=== PATIENT | male | born 1940 | race Caucasian/White ===

== ENCOUNTER 2017-11-13 15:10 | Inpatient (IN) | payer MEDICARE, BC ==
[~2017-11-13] VITALS: Ht 172.7 cm; Wt 86.6 kg
[~2017-11-13 15:10] MED LIST: CARVEDILOL25 MG PO; CEPHALEXIN 500500 M3 PO; COUMADIN 5 MG TA5 M1; FINASTERIDE5 MG PO; FLOMAX0.4 MG PO; FUROSEMIDE 20 M20 MG; FUROSEMIDE 40 M40 M1; GLUCOTROL5 MG; GLYBURIDE 5 MG T5 M1; HYTRIN 5 M5 MG/1 CAP; LANOXIN 0.120.125 M2; LORATADINE; LOVENOX; NORCO 5-325 TA1 EACH PO; NOVOPEN 31 EACH; PLAVIX 75 MG TA75 M1; PRILOSEC 20 MG20 MG; PRINIVIL10 MG PO; PROSCAR 5MG TABL5 MG; PROZAC 20 MG20 MG PO; WELLBUTRIN XL300 M1; ZOCOR40 MG
[2017-11-13 15:12] VITALS: BP 137/56
[2017-11-13] MEDS ORDERED: ELIQUIS5 MG PO (15:34)
[2017-11-13] MEDS ORDERED: GABAPENTIN 100100 MG PO (15:35)
[2017-11-13] MEDS ORDERED: [UNRECOGNIZED DRUG - REMARK] (15:37)
[2017-11-13 16:11] LABS: HEMATOCRIT 32.6 % (42.0-52.0); HEMOGLOBIN 11.3 gm/dL (14.0-18.0); MCH 32.7 pg (26.0-34.0); MCHC 34.6 g/dL (28.0-37.0); MCV 94.4 fL (80.0-100.0); MPV 10.2 fl. (7.2-11.1); NUCLEATED RBCS 0 /100WBC; PLATELET COUNT* 141 thou/uL (150-400); RBC 3.46 mil/uL (4.50-6.00); RDW-CV 14.9 % (10.5-14.5); WBC 9.3 thou/uL (4.0-11.0)
[2017-11-13 16:16] LABS: ANION GAP 9 mmol/L (7-16); BUN 27 mg/dL (7-18); CALCIUM 8.6 mg/dL (8.5-10.1); CHLORIDE 103 mmol/L (98-107); CO2 23 mmol/L (21-32); CREATININE 1.4 mg/dL (0.6-1.3); GLUCOSE 238 mg/dL (70-99); POTASSIUM 4.1 mmol/L (3.5-5.1); SODIUM 135 mmol/L (136-145)
[2017-11-13 16:23] LABS: APTT 28.8 Seconds (25.0-31.3); INR 1.2; PROTIME 11.2 Seconds (9.20-11.50)
[2017-11-13 16:27] LABS: ALBUMIN 2.9 g/dL (3.4-5.0); ALKALINE PHOSPHATASE 107 U/L (46-116); LIPASE 115 U/L (73-393); NT-PRO BRAIN NAT PEPTIDE 579 pg/mL (<300); SGOT 17 U/L (15-37); SGPT 16 U/L (30-65); TOTAL BILIRUBIN 0.8 mg/dL (<0.1-1.0); TOTAL PROTEIN 7.6 g/dL (6.4-8.2); TROPONIN-I LEVEL <0.06 ng/mL (<0.06)
[2017-11-13 16:40] LABS: ABSOLUTE LYMPHOCYTES 1.4 thou/uL (0.8-5.3); ABSOLUTE MONOCYTES 0.6 thou/uL (0.0-1.2); ABSOLUTE NEUTROPHILS 7.3 thou/uL (1.6-8.1); CLUMPED PLTS OCCASIONAL; PLATELET ESTIMATE DECREASED
[2017-11-13 16:41] LABS: ANISOCYTOSIS Occasional
[2017-11-13 17:15] LABS: BE -1.3 mmol/L (-2 to +3); HCO3 21.8 mmol/L (22.0-26.0); PCO2 31.2 mmHg (35.0-45.0); PO2 65.7 mmHg (75.0-100.0); pH 7.462 (7.340-7.450)
[2017-11-13 19:59] VITALS: BP 134/57
[2017-11-13 20:30] VITALS: BP 150/65
[2017-11-13 23:53] VITALS: BP 157/60
[2017-11-14 04:18] VITALS: BP 172/74
--- NOTE | 2017-11-14 05:20 | NUR ---
END SHIFT: PT RESTED WELL. NO PAIN OR COMPLAINTS REPORTED. ASSESSMENT UNCHANGED. VSS. PT STATES SHE "FEELS BETTER THAN SHE HAS IN DAYS." SAFETY PRECAUTIONS IN PLACE, CALL LIGHT IN REACH. PERFORMED HOURLY ROUNDING. WILL CONT TO MONITOR.
--- NOTE | 2017-11-14 05:33 | NUR ---
END SHIFT: PT RESTED WELL. ASSESSMENT UNCHANGED. REMAINS ON 2L NC- TOLERATING WELL. SR 1ST DEG WITH PVCS NOTED ON MONITOR. PT STATES HE HAS BEEN COUGHING UP BLOOD TINGED SPUTUM AT HOME. NONE SEEN HERE. IVF INFUSING WITHOUT DIFFICUTLY. SAFETY PRECAUTIONS IN PLACE. CALL LIGHT IN REACH. WILL CONT TO MONITOR.
[2017-11-14 05:53] LABS: HEMATOCRIT 29.8 % (42.0-52.0); HEMOGLOBIN 10.3 gm/dL (14.0-18.0); MCH 32.7 pg (26.0-34.0); MCHC 34.6 g/dL (28.0-37.0); MCV 94.6 fL (80.0-100.0); MPV 8.8 fl. (7.2-11.1); RBC 3.16 mil/uL (4.50-6.00); RDW-CV 15.3 % (10.5-14.5); WBC 4.4 thou/uL (4.0-11.0)
[2017-11-14 06:31] LABS: CALCIUM 8.1 mg/dL (8.5-10.1); CREATININE 1.1 mg/dL (0.6-1.3); MAGNESIUM 1.6 mg/dL (1.8-2.4); POTASSIUM 4.7 mmol/L (3.5-5.1)
[2017-11-14 11:00] VITALS: BP 161/65
--- NOTE | 2017-11-14 13:41 | EKG ---
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 : 1940 Requested By: Bianca Matute Order Number: [id number] MD: Rob Joseph Measurements Intervals [place] Rate: 79 P: -14 WY: 248 QRS: 29 QRSD: 104 T: -42 QT: 373 QTc: 428 Interpretive Statements Sinus arrhythmia Prolonged WY interval Probable LVH with secondary repol abnrm Inferior infarct, age indeterminate Baseline wander in lead(s) I Compared to ECG 08/10/2015 20:00:11 Myocardial infarct finding now present Sinus rhythm no longer present Electronically Signed On 11-14-2017 13:41:30 CHIEF MEDICAL PHYSICIST by Rob Joseph [email or web address] <ELECTRONICALLY SIGNED> By: Rob Joseph MD, FACC 11/14/17 1341 1515 1515 Rob Joseph MD, FAC /EPI
--- NOTE | 2017-11-14 15:36 | NUR ---
ASSUMED PT CARE AT 0700 PT IS ALERT AND ORIENTED X 4 PT DENIES PAIN OR SOA PT HAS NEUROPATHY WHICH IS TREATED, PT DENIES PAIN OR SOA ON 2L/NC, PT IS UP WITH ASSIST X 1 PT IS A FALL RISK BED ALARM IS ON, TALKED WITH DR STRAUSS AND OBTAINED ORDER FOR CARB CONTROL DIET THIS NURSE PT IN PT BLOOD SUGAR WAS [address] OF [address] PT APPLE JUICE AND RECHECKED PT BLOOD SUGAR WHICH WAS 134 PT STATES HE FEELS BETTER, PT WENT FOR CT, WILL CONTINUE TO MONITOR
[2017-11-14 16:12] LABS: CALCIUM 8.6 mg/dL (8.5-10.1); CREATININE 1.3 mg/dL (0.6-1.3); MAGNESIUM 1.6 mg/dL (1.8-2.4); POTASSIUM 4.2 mmol/L (3.5-5.1)
[2017-11-14 19:45] VITALS: BP 165/68
[2017-11-15] VITALS: BP 139/55
[2017-11-15 04:00] VITALS: BP 165/55
--- NOTE | 2017-11-15 04:23 | NUR ---
END SHIFT: PT RESTED WELL WITH NO COMPLAINTS AND NO PAIN. REPORTED 1 LARGE WATERY STOOL. PT HAS BEEN COUGHING UP COPIOUS AMOUNTS OF BLOODY SPUTUM. SENT DOWN TO LAB FOR CULTURE. TOLERATING IVF. REMAINS ON 2L NC. VSS. 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 SAFETY PRECAUTIONS IN PLACE. CALL LIGHT IN REACH. PERFORMED HOURLY ROUNDING. WILL CONT TO MONITOR.
[2017-11-15 05:21] LABS: HEMATOCRIT 29.9 % (42.0-52.0); HEMOGLOBIN 10.4 gm/dL (14.0-18.0); MCH 32.9 pg (26.0-34.0); MCHC 34.6 g/dL (28.0-37.0); MCV 94.9 fL (80.0-100.0); MPV 8.4 fl. (7.2-11.1); RBC 3.15 mil/uL (4.50-6.00); WBC 5.4 thou/uL (4.0-11.0)
[2017-11-15 06:00] LABS: ALBUMIN 2.6 g/dL (3.4-5.0); CALCIUM 8.2 mg/dL (8.5-10.1); CREATININE 1.3 mg/dL (0.6-1.3); MAGNESIUM 1.6 mg/dL (1.8-2.4); POTASSIUM 4.4 mmol/L (3.5-5.1); TOTAL BILIRUBIN 1.1 mg/dL (<0.1-1.0); TOTAL PROTEIN 6.5 g/dL (6.4-8.2)
[2017-11-15 08:00] VITALS: BP 172/70
[2017-11-15 11:15] VITALS: BP 124/61
--- NOTE | 2017-11-15 14:23 | NUR ---
CM ASSESSMENT: Pt is A&O. Resides at home with his . Independent with ADLs. does the driving. They have a pd lady that comes in to cook and clean twice/week. [facility] No h[facility] of SNF. Pt has a walker, cane and ramp at home, mostly uses the walker. Supportive family that is invovled in POC. Goal is to return home. Per Pt, anticipate dc to home tomorrow. Following for dc needs.
[2017-11-15 15:30] VITALS: BP 143/51
--- NOTE | 2017-11-15 18:19 | NUR ---
ASSUMED RESPONSIBILITY OF PT THIS AM PT IS ALERT AND ORIENTED X2-3 VERY FORGETFUL CAME TO VISIT AND HELPED ANSWER SOME QUESTIONS PT IS AN ACCUCHECK BUT NO INSULIN OR MEDS ORDERED FOR IT PT WITH SOME PAIN TO CHEST WITH COUGHING PT WITH BLOOD IN SPUTUM BUT THIS NURSE DID NOT VISUALIZE PT STATED HE KEPT FORGETTING TO CALL IN THERE BUT NIGHT NURSE SAW IV FLUIDS CONT AT 150/H IV ANTIBIOTICS AND ON 2L NC NO WATERY STOOLS TODAY BUT PT INCONTINENT T/O DAY MG REPLACED AND REDRAW AT 1999 PT IS 1D AV BLOCK WITH PVCS ON THE MONITOR AND B/P ELEVATED THIS AM CALL LIGHT IN REACH
[2017-11-15 20:45] VITALS: BP 179/72
[2017-11-16] VITALS: BP 153/47
[2017-11-16 04:00] VITALS: BP 174/60
--- NOTE | 2017-11-16 07:01 | NUR ---
Pt with cough productive of moderate amount blood-tinged to bloody sputum. Also had brief bout with nausea, no emesis. Magnesium replaced per protocol, and level now normal. Pt reports nausea resolved. VSS. Will continue to monitor.
[2017-11-16 08:00] VITALS: BP 143/48
--- NOTE | 2017-11-16 11:50 | NUR ---
ASSUMED PT CARE AT 0700 PT IS ALERT AND ORIENTED X 3-4 WITH PERIODS OF FORGETFULNESS, PT DENIES PAIN OR SOA ON 2L/NC, PT IS UP WITH ASSIST X 1 WITH WALKER PT IS MEDICAL SURGICAL STATUS, PT VSS, PT BLOOD SUGAR IS ELEVATED NOTIFIED PHYSICIAN OBTAINED ORDER FOR INSULIN SLIDING SCALE, PT IS ON ANTIBIOTICS, WILL CONTINUE TO MONITOR
--- NOTE | 2017-11-16 16:30 | NUR ---
PATIENT TRANSFERRED FROM [facility] THIS EVENING. REPORT RECEIVED FROM MARI JANE. AGREE WITH AM ASSESSMENT. 02 SAT 93% ON 2L NC. DR. BROWN NOTIFIED FOR BREATHING TREATMENTS FOR PATIENT, ORDERS PLACED IN COMPUTER. IV SL. BED ALARM ON FOR PATIENT SAFETY. CALL LIGHT WITHIN REACH, WILL CONTINUE TO MONITOR.
[2017-11-17 00:14] VITALS: BP 137/91
[2017-11-17 00:21] VITALS: BP 144/53
[2017-11-17 03:53] LABS: HEMATOCRIT 29.7 % (42.0-52.0); HEMOGLOBIN 10.2 gm/dL (14.0-18.0); MCH 32.5 pg (26.0-34.0); MCHC 34.3 g/dL (28.0-37.0); MPV 8.4 fl. (7.2-11.1); RBC 3.12 mil/uL (4.50-6.00); RDW-CV 15.2 % (10.5-14.5); WBC 4.9 thou/uL (4.0-11.0)
[2017-11-17 06:09] LABS: ALBUMIN 2.6 g/dL (3.4-5.0); CALCIUM 8.5 mg/dL (8.5-10.1); CREATININE 1.3 mg/dL (0.6-1.3); POTASSIUM 3.9 mmol/L (3.5-5.1); TOTAL BILIRUBIN 1.2 mg/dL (<0.1-1.0); TOTAL PROTEIN 6.8 g/dL (6.4-8.2)
--- NOTE | 2017-11-17 10:45 | CON ---
[address] [address] CONSULTATION Name: BRIE MCKEON Room: [address] IN M.R.#: [id number] Admission: 11/13/17 Attend Phys: Yassine Mclain, Discharge: Date of : 42 Report #: [id number] THIS REPORT FOR: //name// CC: Lubna Mclain DATE OF SERVICE: 11/16/2017 ATTENDING PHYSICIAN: Lubna Jose MD INDICATION FOR CONSULTATION: Non-massive hemoptysis, left lower lobe pneumonia. HISTORY OF PRESENT ILLNESS: The patient is a 77-year-old male who came to the hospital a couple days ago. He has been on Eliquis. He coughed up a couple of large clots. First, they were bright red and then they switched to dark clots and they have basically resolved since he has been in here for the last couple of days. He has had cough with wheezing. He is on Zosyn, has not been ordered any breathing treatments order him some breathing treatments and some bronchodilators. Also, we will give him some Tessalon Perles to suppress his cough. Denies any fever, chills or sweats. Denies any chest pain. He has been on chronic anticoagulation for brainstem stroke several years ago. 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 He is a remote smoker, quit 25 years ago. Denies any alcohol or illicit drug use. OUTPATIENT MEDICATIONS: Included carvedilol 25 mg daily, finasteride 5 mg daily, lisinopril or Prinivil 5 mg daily, tamsulosin 0.4 mg at bedtime, apixaban 5 mg b.i.d. for his stroke, gabapentin 100 mg b.i.d., bupropion 300 mg daily, digoxin 0.125 mg daily, fluoxetine or Prozac 20 mg daily. ALLERGIES: HE HAS ALLERGIES OR INTOLERANCE FROM PROPOXYPHENE FROM DARVON AND ASPIRIN GIVES HIM NAUSEA. FAMILY HISTORY: Negative for premature cardiopulmonary diseases. REVIEW OF SYSTEMS: A 14-point review of systems reviewed, otherwise are negative. PHYSICAL EXAMINATION: GENERAL: This is a somewhat anxious 77-year-old male. VITAL SIGNS: Blood pressure is 143/48, heart rate 72, respirations 16 and temperature is 36. He is on oxygen at 2 liters, he pulls it off continually. He is 5 feet 10 inches tall, weight is 86 kg, BMI [place] 29[place] [phone] CONSULTATION Name: BRIE MCKEON Room: [address] IN M.R.#: [id number] Admission: 11/13/17 Attend Phys: Yassine Mclain, Discharge: Date of : 42 Report #: [id number] HEENT: Pupils are midpoint and reactive. Nares and pharynx are clear. NECK: Supple without nodes. CHEST: Shows a few rhonchi in the left lung base. Right chest is clear. CARDIOVASCULAR: Regular rate and rhythm without murmur, gallop or rub. Heart rate is in the 70s. ABDOMEN: Soft, mildly obese without masses or megaly. EXTREMITIES: Without calf tenderness. No cyanosis, clubbing or edema. NEUROLOGIC: He has some deficits in his legs. LABORATORY DATA: From yesterday, 11/15/2017, hemoglobin is 10, white count 5400. Sodium is 143, potassium is 4.4, carbon dioxide is 24, BUN 17, creatinine 1.3, glucose is 168, calcium is 8.2, magnesium is 1.6. Total bilirubin is 1.1. Albumin is 2.6. Apixaban is still being given and imaging from CT chest and chest x-ray just shows patchy left lower lobe infiltrate. V/Q scan is low probability. No evidence of malignancy. There is a dense pneumonia in both lower lobes, mostly smaller left lower lobe infiltrate and minimal on the right. Cultures so far negative. . We will add some oral bronchodilators and quick burst of steroids. He was not on breathing treatments. I will add some breathing treatments to see if that does not help with his cough and nonmassive hemoptysis. I do not think we need to do bronchoscopy at least at this time. We have to take him off his Eliquis to do that. IMPRESSION: Nonmassive hemoptysis related to left lower lobe pneumonia. PLAN: We will give him some Tessalon Perles, steroids and nebulizer treatments to see if we can improve his situation. If he would get worse, leave him off his apixaban for a day or 2 and until the hemoptysis resolves. Again, I do not think he needs bronchoscopy. Thanks again for allowing us to participate in this man's care. <ELECTRONICALLY SIGNED> By: Robert Rajput MD 11/17/17 1045 1633 [id number] Wright MD /nt
--- NOTE | 2017-11-17 15:05 | NUR ---
I have reviewed the documentation by SAMIR CHAMBERS from 11/17/17 to 11/17/17 and I concur with it. AMY GAITAN
[2017-11-17 16:53] VITALS: BP 142/71
--- NOTE | 2017-11-17 18:15 | NUR ---
ASSUMED CARE THIS AM. A/O X 4, SLEPT MUCH OF THIS SHIFT, UP TO CHAIR FOR 3 HOURS THIS AFTERNOON, WALKING ON RA, PATIENT @ 92%, DID NEED 2L02NC AT REST WHEN NAPPING THIS MORNING. T-SPOT POSITIVE, AWAITING SPUTUM AND URINE FOR LAB ORDERS. MARYAM IV ABT WITHOUT ADR, DENIES PAIN, REPOSITIONED AND TURNED FREQUENTLY THIS SHIFT, CALL LIGHT IN REACH, CONT POC.
[2017-11-18] VITALS: BP 187/67
--- NOTE | 2017-11-18 07:31 | NUR ---
PATIENT SLEPT MOST OF THE NIGHT. IV ANTIBIOTICS WERE GIVEN ORDERED. PATIENT COUGHED UP SOME MORE BLOOD TINGED SPUTUM THIS SHIFT. OXYGEN REMAINS AT 2L PER NASAL CANNULA. PATIENT HAD NO COMPLAINTS OF PAIN. WILL CONTINUE TO MONITOR.
[2017-11-18 08:45] VITALS: BP 184/66
--- NOTE | 2017-11-18 10:35 | CON ---
[address] [address] CONSULTATION Name: BRIE MCKEON Room: [address] IN M.R.#: [id number] Admission: 11/13/17 Attend Phys: Yassine Mclain, Discharge: Date of : 42 Report #: [id number] THIS REPORT FOR: //name// CC: Francheska Feliciano Yassine Mclain DATE OF SERVICE: 11/17/2017 INFECTIOUS DISEASE CONSULTATION ATTENDING PHYSICIAN: Yassine Mclain MD REASON FOR EVALUATION: Positive TB spot. HISTORY OF PRESENT ILLNESS: Chart reviewed, patient examined. This is a 77-year-old gentleman who is admitted with chest-related discomfort. He has had a cough notes about 2 weeks, occasionally produces some bloody sputum. He has had chills, though he was unaware of fever at home. He has some low-grade temperature elevations documented since admission. He does have some anorexia and is uncertain about weight loss. Imaging studies show evidence of lower lobe infiltrates with consolidation. Sputum culture for bacterial pathogens showed upper tract kavita. On questioning, denies any direct exposures with active TB. He was in in latter part of the 50s in the 1960 in the [place] he did travel to [place] and parts of [place]. He lives with his brother at this point. He denies any animal exposure. Overall, he feels somewhat better. He is empirically placed on levofloxacin as well as piperacillin/tazobactam. ALLERGIES: Listed to ASPIRIN. CURRENT MEDICINES: Include levofloxacin, insulin sliding scale, Zosyn, finasteride, lisinopril, bupropion, digoxin, fluoxetine, gabapentin, carvedilol, apixaban, tamsulosin. PAST MEDICAL AND SURGICAL HISTORY: He has diabetes mellitus, hypertension, has some vasculopathy with known coronary artery disease, may have some early dementia, brainstem stroke in 1988, previous cholecystectomy, history of depression. SOCIAL HISTORY: Former smoker, quit 24 years ago. No ethanol. FAMILY HISTORY: Noncontributory. REVIEW OF SYSTEMS: As above. Denies gastrointestinal related complaints. PHYSICAL EXAMINATION: GENERAL: He appears somewhat chronically ill, undernourished[place] [address] CONSULTATION Name: BRIE MCKEON Room: [address]#: [id number] Admission: 11/13/17 Attend Phys: Yassine Mclain, Discharge: Date of : 42 Report #: [id number] and cooperative. He is not encephalopathic. VITAL SIGNS: T-max over the course of the last 3-6 hours 100.2, more recently 99.3, pulse 70, respirations 18, blood pressure 144/53. SKIN: Warm, dry, some contused areas. HEENT: Otherwise, unremarkable. NECK: Supple. LUNGS: Few scattered coarse breath sounds at the bases. HEART: Regular. I do not appreciate any murmur. ABDOMEN: Soft. There are no peritoneal signs. Nontender. GENITOURINARY: Deferred. RECTAL: Deferred. LABORATORY DATA: TB spot was positive. Sputum culture showed upper respiratory tract kavita. Electrolytes: Sodium 139, potassium 3.9, chloride 105, bicarbonate is 20, anion gap of 14, BUN and creatinine 18 and 1.3, glucose of 249. LFTs unremarkable. Albumin of 2.6. Total protein 6.8, estimated GFR 54. CBC: White count of 4.9, H and H 10.2 and 29.7, platelets of 146. Chest x-ray showed retrocardiac opacities improved slightly, possible pneumonitis versus atelectasis. Blood cultures sterile thus far. CT chest without contrast does have dense pneumonitis involving both lungs, small left and tiny right effusions. No obvious findings for malignancy, enlarged spleen. ASSESSMENT AND PLAN: Pneumonitis. The patient had no obvious exposures. He did note he has never had a positive tuberculosis skin test. We will try to collect some AF[employer] sputums, go ahead and do urinary antigen for pneumococcus, I think it is much more likely. He does say he has had recurrent issues with pneumonias in the past, maybe aspiration. Review of the CT showed absence of any apical involvement of the pneumonitis. Thank you, we will follow. <ELECTRONICALLY SIGNED> By: Scott Mireles MD 11/18/17 1035 1542 [id number] Mireles MD /nt
--- NOTE | 2017-11-18 16:50 | NUR ---
PATIENT SITTING UP IN CHAIR ALL SHIFT. PATIENT WALKED WITH THERAPY THIS AFTERNOON, NO DIFFICULTY NOTED UTILIZING WALKER. PATIENT RECEIVED LAST DOSE OF IV STEROID THIS AFTERNOON, WILL START PO PREDNISONE IN AM. IV SL, SCHED ABX INFUSED ORDERED. INSULIN GIVEN WITH MEALS, DR. DUPONT NOTIFIED OF ELEVATED BLOOD SUGARS. PATIENT PLACED ON RA THIS AFTERNOON, NO DIFFICULTY NOTED. CXR TODAY, PENDING RESULTS. SPUTUM SENT TO LAB ORDERED.
[2017-11-18 16:52] VITALS: BP 171/67
[2017-11-18 19:45] VITALS: BP 164/70
--- NOTE | 2017-11-19 06:31 | NUR ---
ASSESSMENT COMPLETE. PT DID NOT SLEEP WELL THROUGH THE NIGHT. PT REPORTS INCREASED SHORNTESS OF AIR AND WHEEZING HEARD UPON AUSCULTATION. PT ON 2L PER NC. IV LASIX GIVEN AND PT SOA IMPROVED. PT UP TO BSC WITH ONE ASSIST. PT HAS IV IN LEFT FOREARM, SALINE LOCKED. PT IS FALL RISK, BED ALARM ON. PT TAKES PILLS WITHOUT DIFFICULTY. SEE ASSESSMENT AND VITALS FOR OTHER DETAILS. CALL LIGHT WITHIN REACH, WILL CONTINUE PLAN OF CARE
[2017-11-19 09:25] VITALS: BP 148/64
[2017-11-19 16:52] VITALS: BP 163/58
--- NOTE | 2017-11-19 19:45 | NUR ---
PATIENT IS ALERT AND ORIENTED TODAY. VITAL SIGNS STABLE ON 2 LITERS ON OF OXYGEN THROUGH NASAL CANNULA. PATIENT IS COUGHING UP MUCUS THAT IS BLOODY AT TIMES. IV IN LEFT FOREARM WORKS WELL FOR ANTIBIOTICS. CALL LIGHT IS IN REACH, BED ALARM IS ON, REPORT HAS BEEN GIVEN TO BLOW OFF WORKER.
[2017-11-19 20:45] VITALS: BP 174/61
[2017-11-19 23:25] VITALS: BP 196/70
[2017-11-20 04:44] LABS: ABSOLUTE LYMPHOCYTES 0.7 thou/uL (0.8-5.3); ABSOLUTE MONOCYTES 0.6 thou/uL (0.0-1.2); ABSOLUTE NEUTROPHILS 4.3 thou/uL (1.6-8.1); BASOPHILS 0.1 %; HEMATOCRIT 29.7 % (42.0-52.0); HEMOGLOBIN 10.3 gm/dL (14.0-18.0); LYMPHOCYTES 12.3 %; MCHC 34.7 g/dL (28.0-37.0); MCV 92.3 fL (80.0-100.0); MONOCYTES 10.7 %; MPV 8.3 fl. (7.2-11.1); NUCLEATED RBCS 0 /100WBC; PLATELET COUNT* 194 thou/uL (150-400); POLYS 76.9 %; RBC 3.22 mil/uL (4.50-6.00); RDW-CV 14.5 % (10.5-14.5); WBC 5.5 thou/uL (4.0-11.0)
[2017-11-20 04:52] LABS: CALCIUM 9.4 mg/dL (8.5-10.1); CREATININE 1.1 mg/dL (0.6-1.3); POTASSIUM 3.1 mmol/L (3.5-5.1)
--- NOTE | 2017-11-20 06:17 | NUR ---
PT SLEPT MOST OF SHIFT. ASSESSMENT DOCUMENTED. MEDS GIVEN PER E-NOV. IV PATENT. NO REPORTS OF PAIN OR NAUSEA. PT COUGHING UP BRIGHT RED BLOOD SEVERAL TIMES THIS SHIFT. PT INCONTINENT THORUGH NIGHT. PT HAD HIGH BLOOD PRESSURE, DR NOTIFIED, MEDS GIVEN PER E-NOV. WILL CONTINUE WITH PLAN OF CARE.
[2017-11-20 10:43] VITALS: BP 136/61
[2017-11-20 16:00] VITALS: BP 138/55
--- NOTE | 2017-11-20 18:43 | NUR ---
PATIENT IS ALERT AND ORIENTED TODAY VERY PLEASANT. UP WITH STAND BY ASSIST. PATIENT HAS MAINTAINED OXYGEN SATS ON ROOM AIR TODAY. VITAL SIGNS HAVE BEEN STABLE TODAY. NO COMPLAINTS OF ANY PAIN TODAY. TOLERATED THERAPY WELL TODAY, FAMILY AT BEDSIDE THIS AFTERNOON AND HAD DINNER WITH TODAY. CALL LIGHT IS IN REACH, BED AND CHAIR ALARM ON. WILL CONTINUE TO MONITOR.
[2017-11-20 21:15] VITALS: BP 177/71
[2017-11-21 00:57] VITALS: BP 216/84
[2017-11-21 03:21] VITALS: BP 173/119
--- NOTE | 2017-11-21 06:48 | NUR ---
PT SLEPT ON AND OFF THROUGH NIGHT. ASSESSMENT DOCUMENTED. MEDS GIVEN PER E-NOV. IV PATENT. NO REPORTS OF PAIN OR NAUSEA. PT COUGHING UP BLOOD 1X THIS SHIFT. PT INCONTINENT THROUGH NIGHT. WILL CONTINUE WITH PLAN OF CARE.
[2017-11-21 10:00] VITALS: BP 166/57
[2017-11-21 16:37] VITALS: BP 161/50
--- NOTE | 2017-11-21 18:22 | NUR ---
PATIENT HAS BEEN ALERT AND ORIENTED TODAY VERY PLEASANT. HAS BEEN AT BEDSIDE TODAY. VITAL SIGNS STABLE ON ROOM AIR. CALL LIGHT IS IN REACH AMD FREQUENT CHECKS ARE BEING DONE. PATIENT HAS HAD NO COMPLAINTS OF ANY KIND TODAY, WILL CONTINUE TO MONITOR.
[2017-11-21 19:30] VITALS: BP 152/55
[2017-11-22 00:07] VITALS: BP 180/79
--- NOTE | 2017-11-22 06:17 | NUR ---
PT SLEPT ON AND OFF THIS SHIFT. ASSESSMENT DOCUMENTED. MEDS GIVEN PER E-NOV. IV PATENT. NO REPORTS OF PAIN OR NAUSEA. PT COUGHING UP LESS BLOOD THIS SHIFT. WILL CONTINUE WITH PLAN OF CARE.
[2017-11-22 08:00] VITALS: BP 175/61
--- NOTE | 2017-11-22 13:19 | NUR ---
ASSUMED PT CARE AT 0730, FULL ASSESMENT DONE CHARTED. PT A/O X4, DENIES PAIN, REPORTS COUGHING UP SPUTUME WITH SMALL AMOUNT OF BLOOD IN IT. PTS VSS, STATES HE WANTS TO GO HOME TODAY. DR DUPONT IN TO SEE PT, DISCHARGE ORDERS RECIEVED. PTS AT BEDSIDE. FALL PRECATUIONS IN PLACE. WILL CONTINUE WITH PLAN OF CARE UNTIL DISCHARGE.
[2017-11-22] MEDS ORDERED: WELLBUTRIN XL300 MG PO (13:25)
[2017-11-22] MEDS ORDERED: DIGOXIN125 MCG PO (13:26)
[2017-11-22 13:32] VITALS: BP 175/61
--- NOTE | 2017-11-22 13:33 | NUR ---
SW met with pt and pt to discuss dc planning for today. HH services to follow. Pt/family preference for [facility]. SW faxed referral and orders to [facility] at fax [phone] and MARIBEL called and spoke with [facility] intake who accepted referral. Pt has all DME already and did not express any other needs or questions; pt and pt said that they feel ready and confident in pt dc home today.
[2017-11-22] MEDS ORDERED: SINGULAIR 10 MG10 M1 PO (14:02)
[2017-11-22] MEDS ORDERED: PROAIR HFA8.5 GM INH (14:04)
[2017-11-22] MEDS ORDERED: PREDNISONE 20 M20 MG (14:06)
[2017-11-22] MEDS ORDERED: LEVAQUIN 500 M500 M2 PO (14:07)
[2017-11-22] MEDS ORDERED: NOVOLOG100 UNIT/1 (14:10)
[2017-11-22] MEDS ORDERED: LEVEMIR SUBQ (14:12)
[2017-11-22] MEDS ORDERED: PREDNISONE 10 M10 MG PO (15:05)
[2017-11-23 02:11] LABS: GLYCOHEMOGLOBIN (HGB A1C) 6.1 % (4.8-5.6)
--- NOTE | 2017-11-24 11:24 | CNG ---
[address] [address] CYTO-NONGYN REPORT PROCEDURE Name: KYLE MCKEON Room: [address] IN M.R.#: [id number] Admission: 11/13/17 Date of : 42 Discharge: 11/22/17 Report #: [id number] Path Case #: [id number] CYTOPATHOLOGY REPORT COLLECTION DATE: 11/23/2017 RECEIVED DATE: 11/23/2017 SUBMITTING PHYS: Dr. Yassine Mclain OTHER PHYS: CLINICAL HISTORY: Pneumonia with associated chest pain. SPECIMEN(S) RECEIVED: A.Sputum * * * * * * * * * * * * FINAL DIAGNOSIS: A. Sputum: - No malignant cells identified. 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 (JAMIA:pit; 11/24/2017) PATHOLOGIST: Axel Song M.D. REPORT ELECTRONICALLY SIGNED BY: Axel Song M.D. DATE/TIME: 11/24/2017 11:24 * * * * * * * * * * * * GROSS PATHOLOGY: A. Sputum: The specimen is submitted unfixed, labeled "Kyle Mckeon". Received by the Cytology Department is one mL of cloudy white fluid. One ThinPrep slide was prepared. (mm 11.23.2017) CAMPGROUND MANAGER(S): JAYCE Posadas([facility]) INITIAL CPT CODE(S): A; 10795 Professional services performed by [facility] at [facility] [address] [place] [address] Technical services performed by [facility] at [address] [place] [address], [facility] [address], [place] [address]. Francheska Feliciano MD [facility] [address] [place] [id number] PHONE: [phone] DIRECTOR: David Kang M.D. [address] [address] CYTO-NONGYN REPORT PROCEDURE Name: KYLE MCKEON Room: [address] IN M.R.#: [id number] Admission: 11/13/17 Date of : 42 Discharge: 11/22/17 Report #: [id number] Path Case #: [id number] * * * END OF REPORT * * *
== END 2017-11-22 15:39 | disposition home health service (06) | DRG 177 ==
LOC: M.ERS 15:10 → M.TBA-ER 17:11 → M.2W 17:11 → M.3W 11-16 16:09
PROVIDERS: Internal Medicine; Internal Medicine Pulmonary Disease; Personal Emergency Response Attendant; ADMIT Family Medicine
DX: J15.6 Pneumonia due to other Gram-negative bacteria (principal); N17.0 Acute kidney failure with tubular necrosis; A15.9 Respiratory tuberculosis unspecified; E44.0 Moderate protein-calorie malnutrition; R04.2 Hemoptysis; E11.9 Type 2 diabetes mellitus without complications; I10 Essential (primary) hypertension; I25.10 Atherosclerotic heart disease of native coronary artery without angina pectoris; F32.9 Major depressive disorder, single episode, unspecified; E83.42 Hypomagnesemia; R16.1 Splenomegaly, not elsewhere classified; R09.02 Hypoxemia; E87.6 Hypokalemia; N18.2 Chronic kidney disease, stage 2 (mild); Z86.73 Personal history of transient ischemic attack (TIA), and cerebral infarction without residual deficits; Z79.899 Other long term (current) drug therapy; Z88.8 Allergy status to other drugs, medicaments and biological substances; Z88.6 Allergy status to analgesic agent; Z90.49 Acquired absence of other specified parts of digestive tract; Z95.1 Presence of aortocoronary bypass graft; Z68.29 Body mass index [BMI] 29.0-29.9, adult

== ENCOUNTER → 2018-03-23 | Outpatient (CLI) | payer OTHER ==
[~2018-03-23] MED LIST changes: +DIGOXIN125 MCG PO; +ELIQUIS5 MG PO; +GABAPENTIN 100100 MG PO; +LEVAQUIN 500 M500 M2 PO; +LEVEMIR SUBQ; +NOVOLOG100 UNIT/1; +PREDNISONE 10 M10 MG PO; +PREDNISONE 20 M20 MG; +PROAIR HFA8.5 GM INH; +SINGULAIR 10 MG10 M1 PO; +WELLBUTRIN XL300 MG PO; +[UNRECOGNIZED DRUG - REMARK]
== END ==
LOC: M.ULTRA 12:30
DX: S81.802S Unspecified open wound, left lower leg, sequela (principal); I73.9 Peripheral vascular disease, unspecified; I10 Essential (primary) hypertension; E11.42 Type 2 diabetes mellitus with diabetic polyneuropathy; I25.118 Atherosclerotic heart disease of native coronary artery with other forms of angina pectoris; I48.92 Unspecified atrial flutter; E78.5 Hyperlipidemia, unspecified; X58.XXXS Exposure to other specified factors, sequela